=== PATIENT | female | born 1950 ===

== ENCOUNTER 2020-02-03 16:34 | Emergency (ER) | payer OTHER ==
[~2020-02-03] VITALS: Ht 170.2 cm; Wt 85.7 kg
[2020-02-03] MEDS ORDERED: LOSARTAN POTASS50 MG (17:01)
[2020-02-03] MEDS ORDERED: LIPITOR (17:01)
== END 2020-02-03 19:40 | disposition home or self-care (01) ==
LOC: ER 16:34
DX: G89.18 Other acute postprocedural pain (principal); H57.12 Ocular pain, left eye